=== PATIENT | female | born 1940 | race Caucasian/White ===

== ENCOUNTER 2017-08-19 05:51 | Emergency (ER) | payer MEDICARE ==
[~2017-08-19] VITALS: Ht 162.6 cm; Wt 72.6 kg
[2017-08-19 05:51] VITALS: BP_SYST 157
--- NOTE | 2017-08-19 05:51 | NUR ---
Patient to ER bed 7 to gown for evaluation. Side rails up. Report given to EDISON GARCIA.
--- NOTE | 2017-08-19 05:55 | NUR ---
Patient AAO x4, brought in by [facility] for nosebleed. Patient states nosebleed started around 4:30am after she had "poked my nose, because I felt something in there". Patient is on anti-coagulants. Nose clamp placed on patient's nose at this time. Vital signs stable. Will continue to monitor.
[2017-08-19] MEDS ORDERED: DIGO125T79 PO (06:24)
[2017-08-19] MEDS ORDERED: VITD2000 PO (06:24)
[2017-08-19] MEDS ORDERED: OXYB5TAB11 PO (06:24)
[2017-08-19] MEDS ORDERED: ROPI0.5T PO (06:24)
[2017-08-19] MEDS ORDERED: HYDR25TA4 PO (06:24)
[2017-08-19] MEDS ORDERED: WARF6TAB20 PO (06:24)
[2017-08-19] MEDS ORDERED: [UNRECOGNIZED DRUG - CODE] PO (06:24)
[2017-08-19] MEDS ORDERED: LISI-600 PO (06:24)
[2017-08-19] MEDS ORDERED: POTA8TAB4 PO (06:24)
[2017-08-19] MEDS ORDERED: OMEP20CA10 PO (06:24)
[2017-08-19] MEDS ORDERED: OMEG-82 PO (06:24)
[2017-08-19] MEDS ORDERED: FURO-150 PO (06:24)
--- NOTE | 2017-08-19 06:24 | NUR ---
Medication reconciliation completed with information provided by PATIENT. Any prior medication reconciliation on file was reviewed and corrected.
--- NOTE | 2017-08-19 07:04 | NUR ---
Report given to EDISON Abad. All care endorsed.
--- NOTE | 2017-08-19 07:23 | NUR ---
Pt resting comfortably in hospital bed. No acute distress. Will continue to monitor.
--- NOTE | 2017-08-19 07:47 | NUR ---
ER Dr. Dunn at bedside explaining results to patient.
[2017-08-19 08:45] VITALS: BP_SYST 149
--- NOTE | 2017-08-19 08:45 | NUR ---
Patient given written and verbal discharge instructions and verbalizes understanding. ER MD discussed with patient the results and treatment provided. Patient in stable condition. ID arm band removed. No Rx given. Patient educated on pain management and to follow up with PMD. Pain Scale 0/10. Opportunity for questions provided and answered. Medication side effect fact sheet provided.
== END 2017-08-19 08:45 | disposition home or self-care (01) ==
LOC: SED 05:51
DX: R04.0 Epistaxis (principal); I10 Essential (primary) hypertension; I48.91 Unspecified atrial fibrillation; Z79.899 Other long term (current) drug therapy
CPT/HCPCS: 99283

== ENCOUNTER 2017-08-29 09:42 | Emergency (ER) | payer MEDICARE ==
[~2017-08-29] VITALS: Ht 157.5 cm; Wt 75.7 kg
[~2017-08-29 09:42] MED LIST: DIGO125T79 PO; FURO-150 PO; HYDR25TA4 PO; LISI-600 PO; OMEG-82 PO; OMEP20CA10 PO; OXYB5TAB11 PO; POTA8TAB4 PO; ROPI0.5T PO; VITD2000 PO; WARF6TAB20 PO; [UNRECOGNIZED DRUG - CODE] PO
[2017-08-29] MEDS ORDERED: NACL 0.9% 1,000 ML IV ONE (09:45)
[2017-08-29] MEDS ORDERED: NS 500 ML IV ONE (09:45)
[2017-08-29 09:47] VITALS: BP_SYST 94
[2017-08-29] MEDS ORDERED: LIP10 PO (10:00)
[2017-08-29] MEDS ORDERED: WARF2TAB2 PO (10:00)
[2017-08-29] MEDS ORDERED: TRAM50TA92 PO (10:00)
[2017-08-29] MEDS ORDERED: POTA20TA83 PO (10:00)
[2017-08-29] MEDS ORDERED: GLUXR500 PO (10:00)
[2017-08-29 10:26] LABS: ANION GAP 8 (5-15); CHLORIDE 103 mmol/L (98-107); CREATININE 0.87 mg/dL (0.55-1.30); GLUCOSE 246 mg/dL (70-99); POTASSIUM 3.9 mmol/L (3.5-5.1); SODIUM SERUM 137 mmol/L (136-145); UREA NITROGEN, BLOOD 19 mg/dL (8-21)
[2017-08-29 10:31] LABS: ALANINE AMINOTRANSFERASE 15 U/L (12-78); ALBUMIN 2.6 g/dL (3.4-4.8); ASPARTATE AMINOTRANSFERASE 18 U/L (10-37); BASOPHILS % (AUTO) 0.4 % (0.0-2.0); DIGOXIN 0.9 ng/mL (0.80-2.00); EOSINOPHILS # (AUTO) 0.1 K/uL (0.0-0.4); EOSINOPHILS % (AUTO) 1.5 % (0.0-4.0); HEMATOCRIT 27.4 % (36-48); HEMOGLOBIN 9.1 g/dL (12.0-16.0); LYMPHOCYTES % (AUTO) 12.2 % (20.5-51.5); MEAN CORPUSCULAR HEMOGLOBIN 33 pg (27-31); MEAN CORPUSCULAR HGB CONC 33 % (32-36); MEAN CORPUSCULAR VOLUME 99 fL (79.0-98.0); MONOCYTES # (AUTO) 0.4 K/uL (0.0-1.0); MONOCYTES % (AUTO) 4.9 % (1.7-9.3); NEUTROPHILS # (AUTO) 6.3 K/uL (1.8-7.7); PLATELET COUNT (AUTO) 242 K/uL (130-430); RED BLOOD CELL COUNT(AUTO) 2.78 MIL/uL (4.2-6.2); RED CELL DISTRIBUTION WIDTH 13.4 % (9.0-15.0); TOTAL BILIRUBIN 0.7 mg/dL (0.0-1.0); WHITE BLOOD COUNT (AUTO) 7.8 K/uL (4.8-10.8)
[2017-08-29 10:45] LABS: PROTHROMBIN TIME 20.4 SECS (9.5-12.5)
[2017-08-29 13:36] VITALS: BP_SYST 160
== END 2017-08-29 13:37 | disposition home or self-care (01) ==
LOC: SED 09:42
DX: S81.812A Laceration without foreign body, left lower leg, initial encounter (principal); I10 Essential (primary) hypertension; I48.91 Unspecified atrial fibrillation; Z79.899 Other long term (current) drug therapy; X58.XXXA Exposure to other specified factors, initial encounter; Y93.89 Activity, other specified; Y92.89 Other specified places as the place of occurrence of the external cause; Y99.8 Other external cause status
CPT/HCPCS: 36415; 80053; 80162; 85025; 85610; 85730; 99284; J7030

== ENCOUNTER 2018-08-27 15:17 | Emergency (ER) | payer MEDICARE ==
[~2018-08-27] VITALS: Ht 167.6 cm; Wt 72.6 kg
[~2018-08-27 15:17] MED LIST changes: +GLUXR500 PO; -HYDR25TA4 PO; +LIP10 PO; -OMEP20CA10 PO; -OXYB5TAB11 PO; +POTA20TA83 PO; -POTA8TAB4 PO; +TRAM50TA92 PO; +WARF2TAB2 PO; -WARF6TAB20 PO
[2018-08-27] MEDS ORDERED: ONDANSETRON HCL 4 MG/2 ML VIAL IVP ONE (15:30)
[2018-08-27] MEDS ORDERED: NACL 0.9% 1,000 ML IV ONE (15:30)
[2018-08-27 15:31] VITALS: BP_SYST 155
[2018-08-27 16:22] LABS: BASOPHILS % (AUTO) 0.9 % (0.0-2.0); EOSINOPHILS % (AUTO) 4.3 % (0.0-4.0); HEMATOCRIT 38.1 % (36-48); HEMOGLOBIN 12.7 g/dL (12.0-16.0); LYMPHOCYTES % (AUTO) 17.6 % (20.5-51.5); MEAN CORPUSCULAR HEMOGLOBIN 32 pg (27-31); MEAN CORPUSCULAR HGB CONC 33 % (32-36); MEAN CORPUSCULAR VOLUME 96 fL (79.0-98.0); MONOCYTES % (AUTO) 6.7 % (1.7-9.3); NEUTROPHILS % (AUTO) 70.5 % (40.0-70.0); PLATELET COUNT (AUTO) 206 K/uL (130-430); RED BLOOD CELL COUNT(AUTO) 3.97 MIL/uL (4.2-6.2); WHITE BLOOD COUNT (AUTO) 5.5 K/uL (4.8-10.8)
[2018-08-27 16:23] LABS: EOSINOPHILS # (AUTO) 0.2 K/uL (0.0-0.4); MONOCYTES # (AUTO) 0.4 K/uL (0.0-1.0); NEUTROPHILS # (AUTO) 3.9 K/uL (1.8-7.7)
[2018-08-27 16:27] LABS: ANION GAP 7 (5-15); CALCIUM 8.8 mg/dL (8.4-11.0); CHLORIDE 105 mmol/L (98-107); CREATININE 0.82 mg/dL (0.55-1.30); GLUCOSE 116 mg/dL (70-99); POTASSIUM 3.6 mmol/L (3.5-5.1); SODIUM SERUM 141 mmol/L (136-145); UREA NITROGEN, BLOOD 20 mg/dL (8-21)
[2018-08-27 16:30] LABS: INR 1.2 (0.8-1.2); PROTHROMBIN TIME 11.9 SECS (9.5-12.5)
[2018-08-27 16:32] LABS: ALANINE AMINOTRANSFERASE 23 U/L (12-78); ALBUMIN 3.6 g/dL (3.4-4.8); AMYLASE 53 U/L (0-100); ASPARTATE AMINOTRANSFERASE 22 U/L (10-37); LIPASE 77 U/L (73-393); TOTAL BILIRUBIN 0.8 mg/dL (0.0-1.0)
[2018-08-27 17:51] LABS: BILIRUBIN,URINE NEGATIVE (NEGATIVE); BLOOD, URINE 1+ (NEGATIVE); CLARITY/URINE SL CLOUDY (CLEAR); COLOR,URINE YELLOW (YELLOW); GLUCOSE,URINE NEGATIVE (NEGATIVE); KETONES,URINE NEGATIVE (NEGATIVE); LEUKOCYTE ESTERASE ,URINE 1+ (NEGATIVE); NITRITE, URINE POSITIVE (NEGATIVE); PH,URINE 6.5 (5.0-8.0); PROTEIN URINE TRACE (NEGATIVE); UROBILINOGEN,URINE 0.2 (0.2-1.0)
[2018-08-27] MEDS ORDERED: cefTRIAXone 1 GM IVPB PREMIX 50 ML IV ONE (18:00)
[2018-08-27 18:01] LABS: BACTERIA,URINE MANY /HPF (None Seen); WBC,URINE 20-50 /HPF (0-3)
[2018-08-27 19:09] VITALS: BP_SYST 155
== END 2018-08-27 19:06 | disposition short-term general hospital (02) ==
LOC: SED 15:17
DX: S80.11XA Contusion of right lower leg, initial encounter (principal); I48.91 Unspecified atrial fibrillation; N39.0 Urinary tract infection, site not specified; I73.9 Peripheral vascular disease, unspecified; Z86.79 Personal history of other diseases of the circulatory system; I10 Essential (primary) hypertension; Z79.899 Other long term (current) drug therapy; W20.8XXA Other cause of strike by thrown, projected or falling object, initial encounter; Y93.89 Activity, other specified; Y92.89 Other specified places as the place of occurrence of the external cause; Y99.8 Other external cause status
CPT/HCPCS: 36415; 71045; 73590; 80053; 81000; 82150; 82550; 82962; 83605; 83690; 84484; 85025; 85610; 85730; 87040; 87086; 87186; 93005; 96374; 99285; J2405; J7030